=== PATIENT | female | born 1980 | race Caucasian/White ===

== ENCOUNTER → 2019-05-18 | Outpatient (CLI) | payer OTHER | END | disposition home or self-care (01) | LOC: PRENATAL 10:00 | DX: O30.91 Multiple gestation, unspecified, first trimester (principal); O09.521 Supervision of elderly multigravida, first trimester; O36.80X2 Pregnancy with inconclusive fetal viability, fetus 2; O10.011 Pre-existing essential hypertension complicating pregnancy, first trimester; O99.341 Other mental disorders complicating pregnancy, first trimester; O34.219 Maternal care for unspecified type scar from previous cesarean delivery ==

== ENCOUNTER → 2019-05-31 | Outpatient (CLI) | payer OTHER | END | disposition home or self-care (01) | LOC: PRENATAL 10:00 | DX: O13.1 Gestational [pregnancy-induced] hypertension without significant proteinuria, first trimester (principal); O36.80X2 Pregnancy with inconclusive fetal viability, fetus 2; O09.521 Supervision of elderly multigravida, first trimester; O10.011 Pre-existing essential hypertension complicating pregnancy, first trimester; O99.341 Other mental disorders complicating pregnancy, first trimester; O34.211 Maternal care for low transverse scar from previous cesarean delivery; O30.031 Twin pregnancy, monochorionic/diamniotic, first trimester ==

== ENCOUNTER → 2019-07-12 | Outpatient (CLI) | payer OTHER | END | disposition home or self-care (01) | LOC: PRENATAL 10:30 | DX: O35.0XX1 Maternal care for (suspected) central nervous system malformation in fetus, fetus 1 (principal); O99.89 Other specified diseases and conditions complicating pregnancy, childbirth and the puerperium ==

== ENCOUNTER → 2019-08-16 | Outpatient (CLI) | payer OTHER | END | disposition home or self-care (01) | LOC: PRENATAL 10:00 | PROVIDERS: ATTEND Obstetrics & Gynecology | DX: O26.842 Uterine size-date discrepancy, second trimester (principal); O26.872 Cervical shortening, second trimester; O09.522 Supervision of elderly multigravida, second trimester; O10.012 Pre-existing essential hypertension complicating pregnancy, second trimester; O99.342 Other mental disorders complicating pregnancy, second trimester; O34.211 Maternal care for low transverse scar from previous cesarean delivery; O30.032 Twin pregnancy, monochorionic/diamniotic, second trimester; O99.89 Other specified diseases and conditions complicating pregnancy, childbirth and the puerperium ==

== ENCOUNTER → 2019-09-21 | Outpatient (CLI) | payer OTHER | END | disposition home or self-care (01) | LOC: PRENATAL 10:00 | PROVIDERS: ATTEND Obstetrics & Gynecology | DX: O26.843 Uterine size-date discrepancy, third trimester (principal); O09.523 Supervision of elderly multigravida, third trimester; O10.013 Pre-existing essential hypertension complicating pregnancy, third trimester; O99.343 Other mental disorders complicating pregnancy, third trimester; O34.211 Maternal care for low transverse scar from previous cesarean delivery; O99.89 Other specified diseases and conditions complicating pregnancy, childbirth and the puerperium; O24.410 Gestational diabetes mellitus in pregnancy, diet controlled; O30.033 Twin pregnancy, monochorionic/diamniotic, third trimester ==

== ENCOUNTER → 2019-10-19 | Outpatient (CLI) | payer OTHER ==
[~2019-10-19] MED LIST: ASA81 MG PO; FOLIC ACID PO; LEXA PO; PRENATAL + DHA1 EAC1 PO
== END | disposition home or self-care (01) ==
LOC: PRENATAL 10:00
PROVIDERS: ATTEND Specialist
DX: O26.843 Uterine size-date discrepancy, third trimester (principal); O09.523 Supervision of elderly multigravida, third trimester; O10.013 Pre-existing essential hypertension complicating pregnancy, third trimester; O99.343 Other mental disorders complicating pregnancy, third trimester; O34.211 Maternal care for low transverse scar from previous cesarean delivery; O24.410 Gestational diabetes mellitus in pregnancy, diet controlled; Z36.89 Encounter for other specified antenatal screening; Z3A.32 32 weeks gestation of pregnancy

== ENCOUNTER 2019-11-12 11:37 | Inpatient (IN) | payer OTHER ==
[~2019-11-12] VITALS: Ht 157.5 cm; Wt 2.3 kg
[2019-11-17] MEDS ORDERED: LEXA PO (12:54)
[2019-11-17] MEDS ORDERED: FOLIC ACID PO (12:54)
[2019-11-17] MEDS ORDERED: ASA81 MG PO (12:55)
[2019-11-17] MEDS ORDERED: PRENATAL + DHA1 EAC1 PO (12:56)
== END 2019-11-27 13:19 | disposition home or self-care (01) | DRG 788 ==
LOC: SURG-SUITE 11-24 05:47 → O/R 11-24 05:47 → SURH 11-24 10:00 → SURG-SUITE 11-24 14:16
PROVIDERS: ADMIT Obstetrics & Gynecology; ATTEND Obstetrics & Gynecology
PROC: 4A1HXCZ Monitoring of Products of Conception, Cardiac Rate, External Approach (ICD-10-PCS; 2019-11-24)
PROC: 10D00Z1 Extraction of Products of Conception, Low, Open Approach (ICD-10-PCS; principal; 2019-11-24 10:00)
DX: O32.2XX0 Maternal care for transverse and oblique lie, not applicable or unspecified (principal); O30.043 Twin pregnancy, dichorionic/diamniotic, third trimester; Z3A.37 37 weeks gestation of pregnancy; Z37.2 Twins, both liveborn

== ENCOUNTER → 2019-11-16 | Outpatient (CLI) | payer OTHER | END | disposition home or self-care (01) | LOC: PRENATAL 11:00 | PROVIDERS: ATTEND Obstetrics & Gynecology Maternal & Fetal Medicine | DX: O26.843 Uterine size-date discrepancy, third trimester (principal); O09.523 Supervision of elderly multigravida, third trimester; O10.013 Pre-existing essential hypertension complicating pregnancy, third trimester; O99.343 Other mental disorders complicating pregnancy, third trimester; O34.211 Maternal care for low transverse scar from previous cesarean delivery; O24.414 Gestational diabetes mellitus in pregnancy, insulin controlled; Z36.89 Encounter for other specified antenatal screening; Z3A.36 36 weeks gestation of pregnancy ==